=== PATIENT | male | born 1995 | race Hispanic/Latino ===

== ENCOUNTER 2023-07-09 20:22 | Emergency (ER) | payer OTHER, SELFPAY ==
[2023-07-09] MEDS ORDERED: Ketorolac Tromethamine 30 MG/ML VIAL ONE (21:57)
== END 2023-07-09 23:12 | disposition home or self-care (01) ==
LOC: ERS 20:22
DX: S09.90XA Unspecified injury of head, initial encounter (principal); M79.601 Pain in right arm; F17.290 Nicotine dependence, other tobacco product, uncomplicated; V43.52XA Car driver injured in collision with other type car in traffic accident, initial encounter
CPT/HCPCS: 70450; 72100; 96372; J1885

== ENCOUNTER 2024-02-11 18:42 | Emergency (ER) | payer SELFPAY ==
[2024-02-11] MEDS ORDERED: Boostrix 0.5 ML (Tdap) VIAL (>/=7 yrs of age) ONE (19:37)
[2024-02-11] MEDS ORDERED: Ketorolac Tromethamine 30 MG (1 mL) VIAL ONE (19:37)
[2024-02-11] MEDS ORDERED: fentaNYL 50 mcg/mL 1 mL Vial ONE (19:37)
== END 2024-02-11 20:03 | disposition home or self-care (01) ==
LOC: ERS 18:42
DX: S60.212A Contusion of left wrist, initial encounter (principal); S50.02XA Contusion of left elbow, initial encounter; S40.212A Abrasion of left shoulder, initial encounter; S20.112A Abrasion of breast, left breast, initial encounter; F17.290 Nicotine dependence, other tobacco product, uncomplicated; V00.848A Other accident with standing micro-mobility pedestrian conveyance, initial encounter; Y93.89 Activity, other specified; Z23 Encounter for immunization
CPT/HCPCS: 90471; 90715; 96372; J1885; J3010